=== PATIENT | female | born 1985 | race Caucasian/White ===

== ENCOUNTER 2017-06-26 10:03 | Emergency (ER) | payer BC ==
[~2017-06-26] VITALS: Ht 182.9 cm; Wt 100.7 kg
[~2017-06-26 10:03] MED LIST: BIRTH CONTROL PILL; TOPAMAX50 MG PO; ZOLOFT50 MG PO
== END 2017-06-26 12:43 | disposition home or self-care (01) ==
LOC: CFTX 10:03 → CED 10:03 → CFTX 10:43
DX: J02.9 Acute pharyngitis, unspecified (principal); F17.200 Nicotine dependence, unspecified, uncomplicated; Z79.899 Other long term (current) drug therapy
CPT/HCPCS: 96372; 99282; J1100